=== PATIENT | male | born 1940 | race Caucasian/White ===

== ENCOUNTER → 2017-07-02 | Outpatient (CLI) | payer MEDICARE ==
--- NOTE | 2017-07-02 14:32 | CT ---
EXAMINATION TYPE: CT chest wo con DATE OF EXAM: 07/02/2017 COMPARISON: NONE HISTORY: Cough CT DLP: 556.[address] of the chest was performed with lung and mediastinal window settings submitted. The la ck of contrast limits evaluation of the vascular, mediastinal and parenchymal structures including th e upper abdomen. LUNGS: The lungs are clear and free of infiltrate. No atelectasis. No pulmonary nodule or mass is de tected. Small right-sided pleural effusion. Scattered calcified pleural plaques compatible with asbes tos related pleural disease. No CT evidence of interstitial lung disease. MEDIASTINUM/GABY: Thoracic aorta is of normal caliber with limited evaluation given lack of contrast . The heart is enlarged. Coronary artery calcifications identified. No evidence for mediastinal mas s. No lymph nodes greater than 1cm. UPPER ABDOMEN: No significant abnormality is seen. OTHER: No significant other abnormality. IMPRESSION: 1. Small right-sided pleural effusion. 2. Asbestos-related pleural disease.
== END | disposition home or self-care (01) ==
LOC: RADCTMAIN 13:23
PROVIDERS: ATTEND Family Medicine
DX: J90 Pleural effusion, not elsewhere classified (principal); J92.0 Pleural plaque with presence of asbestos
CPT/HCPCS: 71250

== ENCOUNTER → 2019-06-23 | Outpatient (CLI) | payer MEDICARE ==
[~2019-06-23] MED LIST: REGADENOSON 0.4 MG/5 ML SYRINGE IV ONE
--- NOTE | 2019-06-23 16:43 | NM ---
"EXAMINATION TYPE: NM stress lexiscan cardiolite DATE OF EXAM: 06/23/2019 COMPARISON: NONE HISTORY: Abnormal EKG, R 94.31 TECHNIQUE: After the intravenous administration of 9.66 mCi Tc 99m Sestamibi - Cardiolite resting SP ECT images acquired 45 minutes post injection. The patient received 0.4mg Lexiscan, 25.8 mCi Tc 99m Sestamibi - Stress images obtained [address] injection FINDINGS: There is diminished radiotracer accumulation along the anterior wall at rest images. This is predomin antly in the mid anterior wall extending towards the cardiac base. Large defects are present on stress images including the entire anterior wall, the entire lateral wal l to the cardiac apex, and diminished radiotracer within the inferior wall with increasing diminished radiotracer from the cardiac base to the cardiac apex. These areas are large stress-induced ischemic changes. This correlates with the polar maps. Ejection fraction is calculated at 2 which is very low. IMPRESSION: 1. Large stress-induced ischemic changes along the anterior wall, lateral wall and to a lesser degree present through the posterior wall left lateral ventricle. 2. Prior infarct along the anterior wall from the cardiac base to the midportion. 3. Global hypokinesia with a very low ejection fraction of 21%. A [place] level critical message alert has been initiated for Nader Beltre MD via the [employer] 36 0 | Critical Results System on 06/23/2019 4:37 PM. This message alert has been sent to Nader Beltre MD via the preferences provided by the clinician for the receipt of Radiology Critical Findings. [facility] ID [id number]."
--- NOTE | 2019-06-24 16:03 | EST ---
EXERCISE STRESS DATE OF STUDY: 06/23/2019 AGE: 78 SEX: Male HT: 71" WT: 200# PROTOCOL: Lexiscan Cardiolite STAGE: DURATION OF EXERCISE: HEART RATE REST: 63 BLOOD PRESSURE REST: 145/87 MAXIMUM HEART RATE ACHIEVED: 98 MAXIMUM BLOOD PRESSURE: 157/82 85% MPHR: 122 100% MPHR: 144 METS: INDICATIONS: Abnormal EKG CLINICAL INFORMATION: A Lexiscan nuclear study was performed. Resting EKG shows normal sinus rhythm with ST- T changes suggestive of left ventricular hypertrophy and strain pattern. No significant change in the ST-segment from baseline was noted during Lexiscan injection. The results of the nuclear study will follow. MMODL / IJN: [id number] /
== END | disposition home or self-care (01) ==
LOC: RADNMMAIN 07:48
PROVIDERS: ATTEND Family Medicine
DX: I21.09 ST elevation (STEMI) myocardial infarction involving other coronary artery of anterior wall (principal); I25.89 Other forms of chronic ischemic heart disease
CPT/HCPCS: 93017; 78452; A9500; J2785

== ENCOUNTER 2019-07-06 15:30 | Inpatient (IN) | payer MEDICARE ==
[2019-07-06 19:30] VITALS: RESP 18
[2019-07-06] MEDS ORDERED: LISINOPRIL 10 MG TAB PO STA (20:24)
[2019-07-06] MEDS ORDERED: SODIUM CHLORIDE 0.9% 1,000 ML in EMPTY BAG 1 BAG IV ONE (20:30)
[2019-07-06] MEDS ORDERED: NITROGLYCERIN SL TABS 0.4 MG TAB SUBLINGUAL PRN (20:30)
[2019-07-06] MEDS ORDERED: ATORVASTATIN 40 MG TAB PO SCH (21:00)
[2019-07-06] MEDS: METOPROLOL TARTRATE 25 MG TAB PO SCH (21:19)
[2019-07-06] MEDS: NITROGLYCERIN OINT 1 INCH/GM PACKET TOPICAL SCH (21:20)
[2019-07-06 21:38] LABS: Basophils % (A) 0 %; Eosinophils # (A) 0.2 k/uL (0-0.7); Eosinophils % (A) 3 %; HCT 45.3 % (39.0-53.0); HGB 14.7 gm/dL (13.0-17.5); Lymphocytes # (A) 1.4 k/uL (1.0-4.8); Lymphocytes % (A) 18 %; MCH 27.5 pg (25.0-35.0); MCHC 32.4 g/dL (31.0-37.0); Mean Platelet Volume 6.6; Monocytes # (A) 0.5 k/uL (0-1.0); Monocytes % (A) 7 %; Neutrophils # (A) 5.1 k/uL (1.3-7.7); Neutrophils % (A) 69 %; Platelet Count 168 k/uL (150-450); RBC 5.33 m/uL (4.30-5.90); RDW 13.3 % (11.5-15.5); WBC 7.4 k/uL (3.8-10.6)
[2019-07-06 21:43] LABS: Potassium 4.3 mmol/L (3.5-5.1)
[2019-07-07] MEDS ORDERED: SODIUM CHLORIDE 0.9% 1,000 ML IV SCH ×2 (04:30→16:15)
[2019-07-07] MEDS: NITROGLYCERIN OINT 1 INCH/GM PACKET TOPICAL SCH ×2 (06:50→11:59)
[2019-07-07] MEDS: LISINOPRIL 5 MG TAB PO SCH (08:08)
[2019-07-07] MEDS: METOPROLOL TARTRATE 25 MG TAB PO SCH ×2 (08:08→19:58)
[2019-07-07] MEDS ORDERED: ASPIRIN 81 MG PO SCH (09:00)
[2019-07-07] MEDS ORDERED: SODIUM CHLORIDE 0.9% 1,000 ML IV ONE (14:25)
[2019-07-07] MEDS ORDERED: fentaNYL (PF) 50 MCG/ML 2 ML AMP IV ONE (14:36)
[2019-07-07] MEDS ORDERED: MIDAZOLAM 2 MG/2 ML VIAL IVP ONE (14:37)
[2019-07-07] MEDS ORDERED: LIDOCAINE 1% INJ 10MG/ML (20 ML MDV) SQ ONE (14:40)
[2019-07-07] MEDS ORDERED: NITROGLYCERIN OINT 1 INCH/GM PACKET TOPICAL ONE (14:42)
[2019-07-07] MEDS ORDERED: hydrALAZINE HCL 20 MG/ML 1 ML VIAL IV ONE (15:14)
[2019-07-07] MEDS ORDERED: IOPAMIDOL-370 125ML BTL INJ ONE (15:30)
[2019-07-07] MEDS ORDERED: BIVALIRUDIN 250 MG in SODIUM CHLORIDE 0.9% 50 ML IV ONE (15:38)
[2019-07-07] MEDS ORDERED: BIVALIRUDIN BOLUS 250 MG/50 ML IV ONE (15:38)
[2019-07-07] MEDS ORDERED: CLOPIDOGREL 75 MG TAB PO ONE (15:40)
[2019-07-07] MEDS ORDERED: NITROGLYCERIN 1000MCG/10ML SYRINGE INTRACORON ONE (15:57)
[2019-07-07] MEDS ORDERED: IOPAMIDOL-370 100ML BTL INJ ONE (16:03)
[2019-07-07] MEDS ORDERED: RX INFO: IV CONTRAST WAS GIVEN 1 EACH MISC MISCELLANE PRN (16:15)
[2019-07-07] MEDS ORDERED: ZOLPIDEM 5 MG TAB PO PRN (16:15)
[2019-07-07] MEDS ORDERED: MAG HYDROX/AL HYDROX/SIMETH 30 ML CUP PO PRN (16:15)
[2019-07-07] MEDS ORDERED: NITROGLYCERIN SL TABS 0.4 MG TAB SUBLINGUAL PRN (16:15)
[2019-07-07] MEDS ORDERED: ATROPINE SULFATE 0.1 MG/ML 10ML SYRINGE IV PRN (16:15)
[2019-07-07] MEDS: ISOSORBIDE MONONITRATE ER 30 MG TAB.ER.24H PO SCH (17:30)
--- NOTE | 2019-07-07 19:23 | LTR ---
DATE OF SERVICE: 07/07/2019 Dear Nader: I performed cardiac catheterization on Abisai Garcia. A detailed catheterization noted is enclosed for your records. In brief, he has [place] 3 vessel coronary artery disease with patent VIDES to LAD and venous graft to PDA. Venous grafts to ramus intermedius and OM are occluded. The patient will undergo angioplasty of [place] circumflex coronary artery and if it does not improve his symptoms, the patient will be brought back and angioplasty of the high OM branch will be attempted. Thank you for giving us the privilege to participate in this pleasant gentleman. Sincerely, SANA / IJN: [id number] /
--- NOTE | 2019-07-07 19:23 | CC ---
CARDIAC CATHETERIZATION REPORT INDICATION: Unstable angina with abnormal stress test. PROCEDURE NOTE: Note after obtaining informed consent, left heart catheterization and coronary angiogram were performed via the right femoral artery. The patient has very tortuous iliac vessels. I had to use a long sheath to perform the cardiac catheterization. FINDINGS: HEMODYNAMICS: The left ventricular end-diastolic pressure is 22 mm. There is no significant gradient across the aortic valve. LEFT VENTRICULOGRAM: Left ventriculogram is not performed. ANGIOGRAPHIC DATA: LEFT MAIN CORONARY ARTERY: Left main coronary artery is a normal-sized vessel and is free of stenosis. Divides into left anterior descending coronary artery and circumflex coronary artery and ramus intermedius. LEFT ANTERIOR DESCENDING CORONARY ARTERY: The LAD appears totally occluded in its proximal part. CIRCUMFLEX CORONARY ARTERY: The circumflex coronary artery shows a 95% focal stenosis distally. RAMUS INTERMEDIUS: The ramus intermedius also has an an 80% stenosis RIGHT CORONARY ARTERY: Right coronary artery could not be engaged. SELECTIVE INJECTION OF THE BYPASS GRAFTS: VIDES to LAD appears patent. Proximal and distal anastomotic sites are free of disease. Stebbins LAD is a very small caliber vessel. Venous graft to ramus intermedius is occluded. Venous graft to the OM is occluded. Venous graft to the PDA appears patent and free of significant disease. CONCLUSIONS: 1. [place] 3 vessel coronary artery disease with patent VIDES to LAD, venous graft to PDA. 2. Occluded venous grafts to ramus intermedius and OM. PLAN: Patient will undergo angioplasty of the [place] circumflex coronary artery. If this does not improve his symptoms, we will consider angioplasty of the high OM branch. The patient has renal insufficiency and will be hydrated after surgery. We engaged the VIDES using a diana catheter and the venous graft to the PDA was engaged using a diana catheter. A [place] catheter engaged the venous grafts to ramus intermedius and OM. The patient received moderate conscious sedation and total sedation time was 26 minutes. MMODL / IJN: [id number] /
--- NOTE | 2019-07-07 20:59 | PTCA ---
PERCUTANEOUSTRANS CORORONARY ANGIOGRAPHY Mr. Garcia is a 79-year-old male with a known history of coronary artery disease status post coronary artery bypass grafting who presented with symptoms of exertional chest discomfort and abnormal myocardial perfusion imaging, underwent cardiac catheterization by Dr. Yates and was found to have critical stenosis involving the distal left circumflex. In view of that, recommendation was made regarding angioplasty and stenting. The procedure as well as risks and complications were discussed with the patient who is in full understanding and agreement. DESCRIPTION OF PROCEDURE: 6-[place] LBU 3.75 guiding catheter introduced into the system. After cannulating the left main, a 0.014 balanced medium weight J-wire was advanced across the lesion, positioned distally. Following that, a 2.5 x 12 mm Trek balloon was advanced and two inflations were done at 10 atmospheres. Following that, the balloon was removed and a 2.5 x 18 mm Xience Celeste stent was deployed. It was dilated at 16 atmospheres. After the last inflation, after appropriate wait, the balloon and the guidewire were withdrawn back in the guiding catheter. Images were obtained and repeated. Those images reveal stable successful stenting. At that point, the guiding catheter, the balloon and the guidewire were removed. The sheath was removed. Hemostasis was obtained with deployment of an Angio-Seal. There was no immediate complication. Patient is returned to his room in stable condition. Of note, the patient received Angiomax per protocol as well as oral loading dose of clopidogrel. He had chest discomfort with the inflations that resolved at the end procedure and no significant EKG changes. RESULTS: Successful stenting of the distal left circumflex with reduction of stenosis from 95% to 0%. RECOMMENDATION: Patient will be continued on aspirin, Plavix beta monica, GALLO inhibitor, statin. Close followup of his symptoms will be done. If he has further symptoms, then attempt to recanalize the totally occluded first obtuse marginal branch will be done. Those findings and recommendations were discussed with the patient who is in full understanding and agreement. MMODL / IJN: [id number] /
[2019-07-07] MEDS ORDERED: ATORVASTATIN 80 MG TAB PO SCH (21:00)
--- NOTE | 2019-07-08 07:18 | HP ---
HISTORY AND PHYSICAL CHIEF COMPLAINT: This 79-year-old white male with exertional and at rest angina with abnormal stress test and chest pain with any exertion or stress. He was admitted to the hospital. 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 He had angioplasty of the right circumflex artery today. He is currently chest pain free with no lightheaded, dizziness, syncope. MEDICATIONS: 1. Lipitor 80 q.h.s. 2. Plavix 75 mg daily. 3. Imdur 30 mg daily. 4. Zestril 5 mg daily. 5. Lopressor 25 b.i.d. 6. Nitro sublingual p.r.n. ejection fraction around 21% REVIEW OF SYSTEMS: Fourteen-point review of systems negative except for as mentioned above. SURGERY: He had a CABG surgery 10 years ago. No stress test in years. PHYSICAL EXAMINATION: Respiratory 18 to 20, pulse 60 to 64, blood pressure 103 to 112 over 50 to 60s, O2 95% to 98% on room air, temp 98. CARDIOVASCULAR: S1, S2. LUNGS: Clear. GI: Soft. HEMATOLOGY: Negative Homans. PSYCH: Fair mood and affect. NEUROLOGIC: Alert and oriented x3. ASSESSMENT: Exertional and unstable angina with coronary artery disease, abnormal stress test, prior CABG. The patient is stable from medical standpoint after angioplasty. He will be discharged home in the morning for possible discharge and an outpatient stress test in 3 months. MMODL / IJN: [id number] /
[2019-07-08] MEDS ORDERED: CLOPIDOGREL 75 MG TAB ONE (07:53)
[2019-07-08 08:04] LABS: Calcium 9.3 mg/dL (8.4-10.2); Potassium 4.5 mmol/L (3.5-5.1)
[2019-07-08] MEDS: METOPROLOL TARTRATE 25 MG TAB PO SCH (08:04)
[2019-07-08] MEDS: ISOSORBIDE MONONITRATE ER 30 MG TAB.ER.24H PO SCH (08:05)
[2019-07-08] MEDS: LISINOPRIL 5 MG TAB PO SCH (08:06)
[2019-07-08] MEDS ORDERED: ASPIRIN 81 MG PO SCH (09:00)
[2019-07-08 10:27] VITALS: BMI 28.5
--- NOTE | 2019-07-08 11:00 | ECHOF ---
Referral Reason:cp MEASUREMENTS -------- HEIGHT: 180.3 cm WEIGHT: 90.7 kg BP: RVIDd: 3.2 cm (< 3.3) IVSd: 0.8 cm (0.6 - 1.1) LVIDd: 4.0 cm (3.9 - 5.3) LVPWd: 1.0 cm (0.6 - 1.1) IVSs: 1.5 cm LVIDs: 2.5 cm LVPWs: 1.3 cm LAESV Index (A-L): 37.10 ml/m Ao Diam: 2.4 cm (2.0 - 3.7) AV Cusp: 1.4 cm (1.5 - 2.6) LA Diam: 3.6 cm (2.7 - 3.8) MV EXCURSION: 13.883 mm (> 18.000) MV EF SLOPE: 24 mm/s (70 - 150) EPSS: 0.8 cm MV E Jose G: 0.81 m/s MV DecT: 202 ms MV A Jose G: 0.30 m/s MV E/A Ratio: 2.73 AV maxP.42 mmHg AV meanP.69 mmHg AR PHT: 621 ms RAP: 5.00 mmHg RVSP: 39.99 mmHg TAPSE: 13.67 mm FINDINGS -------- Sinus rhythm. This was a technically difficult study with suboptimal views. The left ventricular size is normal. Left ventricular wall thickness is normal. There is severe g lobal hypokinesis of LV . Overall left ventricular systolic function is severely impaired with, an EF between 20 - 25 %. Increased LAP Grade 3 Diastolic Dysfunction. The right ventricle is normal in size. The right ventricular systolic function is severely impaired . LA is moderately dilated 34-39 ml/m2 The right atrial size is normal. Lumason used Aortic valve is trileaflet and is moderately thickened. There is moderate aortic valve sclerosis. There is mild aortic regurgitation. Peak/mean gradient across the Aortic Valve is 15.42mmHg / 7.69 mmHg. The mitral valve is normal. The mitral valve leaflets are mildly thickened. Mild mitral regurgita tion is present. The tricuspid valve appears structurally normal. Mild tricuspid regurgitation present. There is m ild pulmonary hypertension. The right ventricular systolic pressure, as measured by Doppler, is 39. 99mmHg. There is no pulmonic regurgitation present. The aortic root size is normal. IVC Not well visulized. There is no pericardial effusion. CONCLUSIONS -------- 1. Sinus rhythm. 2. This was a technically difficult study with suboptimal views. 3. The left ventricular size is normal. 4. Left ventricular wall thickness is normal. 5. There is severe global hypokinesis of LV . 6. Overall left ventricular systolic function is severely impaired with, an EF between 20 - 25 %. 7. Increased LAP Grade 3 Diastolic Dysfunction. 8. The right ventricle is normal in size. 9. The right ventricular systolic function is severely impaired. 10. LA is moderately dilated 34-39 ml/m2 11. The right atrial size is normal. 12. Lumason used 13. Aortic valve is trileaflet and is moderately thickened. 14. There is moderate aortic valve sclerosis. 15. There is mild aortic regurgitation. 16. Peak/mean gradient across the Aortic Valve is 15.42mmHg / 7.69mmHg. 17. The mitral valve is normal. 18. The mitral valve leaflets are mildly thickened. 19. Mild mitral regurgitation is present. 20. The tricuspid valve appears structurally normal. 21. Mild tricuspid regurgitation present. 22. There is mild pulmonary hypertension. 23. The right ventricular systolic pressure, as measured by Doppler, is 39.99mmHg. 24. There is no pulmonic regurgitation present. 25. The aortic root size is normal. 26. IVC Not well visulized. 27. There is no pericardial effusion. OPERATIONS RESEARCH MANAGER: Inez Bhatt RDCS
[2019-07-08 12:29] VITALS: TEMP 98
[2019-07-08 12:31] VITALS: BP 134/66; PULSE 54
[2019-07-08 12:54] LABS: HCT 44.4 % (39.0-53.0); HGB 14.3 gm/dL (13.0-17.5); MCH 27.3 pg (25.0-35.0); MCHC 32.3 g/dL (31.0-37.0); MCV 84.5 fL (80.0-100.0); Mean Platelet Volume 6.8; Platelet Count 173 k/uL (150-450); RBC 5.25 m/uL (4.30-5.90); RDW 13.5 % (11.5-15.5); WBC 7.6 k/uL (3.8-10.6)
[2019-07-08 13:03] LABS: Calcium 9.6 mg/dL (8.4-10.2); Potassium 4.3 mmol/L (3.5-5.1)
--- NOTE | 2019-07-08 14:10 | P.CRDCN ---
History of Present Illness History of present illness: This is Maribell Burns PA-C dictating a consult on this patient The patient was interviewed and examined by me as well as by Dr. Lyle Case discussed with Dr. Lyle and he agrees with the plan of care IMPRESSION / ASSESSMENT: CAD status post CABG and recent stenting of the distal left circumflex Ischemic cardiomyopathy Hypertension Dyslipidemia PLAN: Continue maximal medical management with aspirin and statins and beta blockers Continue dual antiplatelet therapy Patient is clear for discharge from a cardiac standpoint with close outpatient follow-up HPI Patient is a 79-year-old male with a past medical history of CAD status post CABG who presented for cardiac catheterization for evaluation of an abnormal nuclear stress test. He was found to have critical stenosis of the distal left circumflex and underwent successful stenting of the distal left circumflex. Echocardiogram today shows severely impaired systolic function, EF 20-25%. Patient seen and examined sitting up at the side of the bed. Denies any bleeding issues. Has been getting up and walking around. Tolerated his breakfast. Denies any complaints of chest pain, shortness of breath, dizziness lightheadedness or palpitations. ROS: No fevers, chills or rigors, no cough, phlegm or expectoration, no nausea, vomiting or diarrhea, no hematuria, dysuria, no musculoskeletal complaints, no strokes or seizures, no skin lesions. EXAMINATION: Temperature 98.0F, pulse 61, respirations 18, blood pressure 133/64, oxygen saturation 98% on room air Patient seen and examined sitting up at the side of the bed, in no acute distress Lungs clear to auscultation bilaterally, no wheezing rhonchi or crackles Heart is regular, normal S1 and S2, no murmurs gallops or rubs No elevated JVD No lower extremity edema Right groin minimally tender to palpation, no bleeding or hematomas palpated REVIEW OF LABS, ECG & MEDICAL DATA WBC 7.6, hemoglobin 14.3, platelets 173, potassium 4.3, BUN 16, creatinine 1.11 LDL 138 Echocardiogram shows severely impaired systolic function, EF 20-25%, severe global hypokinesis Past Medical History Past Medical History: Coronary Artery Disease (CAD), Chest Pain / Angina, Hyperlipidemia, Hypertension, Prostate Disorder Additional Past Medical History / Comment(s): gout, History of Any Multi-Drug Resistant Organisms: None Reported Past Surgical History: Coronary Bypass/CABG, Heart Catheterization Past Anesthesia/Blood Transfusion Reactions: No Reported Reaction Past Psychological History: No Psychological Hx Reported Smoking Status: Former smoker Past Alcohol Use History: None Reported Past Drug Use History: None Reported - Past Family History Father Family Medical History: CVA/TIA Mother History Unknown: Yes Medications and Allergies Home Medications Medication Instructions Recorded Confirmed Type Aspirin EC [Ecotrin Low Dose] 81 mg PO DAILY #30 tablet. 03/02/14 07/06/19 Rx Isosorbide Dinitrate 30 mg PO DAILY 07/06/19 07/06/19 History Lisinopril [Zestril] 5 mg PO DAILY 07/06/19 07/06/19 History Metoprolol Tartrate 25 mg PO BID 07/06/19 07/06/19 History Atorvastatin [Lipitor] 80 mg PO HS #30 tab 07/08/19 Rx Clopidogrel [Plavix] 75 mg PO DAILY #30 tab 07/08/19 Rx Nitroglycerin Sl Tabs [Nitrostat] 0.4 mg SUBLINGUAL Q5M PRN #100 tab 07/08/19 Rx Allergies Allergy/AdvReac Type Severity Reaction Status Date / Time No Known Allergies Allergy Verified 07/06/19 19:40 Physical Exam Vitals: Vital Signs Temp Pulse Resp BP Pulse Ox 07/08/19 12:00 54 L 18 134/66 97 07/08/19 08:00 98.0 F 61 18 133/64 98 07/08/19 04:00 75 18 07/07/19 22:59 98.2 F 75 18 149/71 97 07/07/19 22:34 60 18 07/07/19 20:00 98.0 F 60 18 109/65 95 07/07/19 19:00 64 18 103/70 98 07/07/19 18:00 62 18 112/58 97 07/07/19 17:30 73 18 169/82 96 07/07/19 17:00 62 17 137/78 96 07/07/19 16:45 68 17 145/73 96 07/07/19 16:30 61 18 148/79 97 07/07/19 16:15 72 18 149/79 96 07/07/19 16:00 18 151/85 98 Intake and Output 07/07/19 07/08/19 07/08/19 22:59 06:59 14:59 Intake Total 372 350 Output Total 225 Balance 147 350 Intake: IV 32 Intake, IV Titration 100 100 Amount Sodium Chloride 0.9% 1, 100 100 000 ml @ 100 mls/hr IV . Q10H [facility] Rx#:[id number] Oral 240 250 Output: Urine 225 Other: Voiding Method Urinal Urinal # Voids 1 1 Weight 90.2 kg 90.2 kg Results 07/08/19 12:29 07/08/19 12:29 CBC 07/08/19 Range/Units 12:29 WBC 7.6 (3.8-10.6) k/uL RBC 5.25 (4.30-5.90) m/uL Hgb 14.3 (13.0-17.5) gm/dL Hct 44.4 (39.0-53.0) % Plt Count 173 (150-450) k/uL Comprehensive Metabolic Panel 07/08/19 07/08/19 Range/Units 05:33 12:29 Sodium 138 139 (137-145) mmol/L Potassium 4.5 4.3 (3.5-5.1) mmol/L Chloride 103 105 (98-107) mmol/L Carbon Dioxide 30 26 (22-30) mmol/L BUN 16 16 (9-20) mg/dL Creatinine 1.16 1.11 (0.66-1.25) mg/dL Glucose 96 116 H (74-99) mg/dL Calcium 9.3 9.6 (8.4-10.2) mg/dL Current Medications Generic Name Dose Route Start Last Admin Trade Name Freq PRN Reason Stop Dose Admin Al Hydroxide/Mg Hydroxide 30 ml 07/07/19 16:15 Maalox PO Q4HR PRN Heartburn Aspirin 81 mg 07/08/19 09:00 07/08/19 08:05 Aspirin PO 81 mg DAILY RELL Administration Atorvastatin Calcium 80 mg 07/07/19 21:00 07/07/19 19:58 Lipitor PO 80 mg HS RELL Administration Atropine Sulfate 0.5 mg 07/07/19 16:15 Atropine IV ONCE PRN Symptomatic Bradycardia Clopidogrel Bisulfate 75 mg 07/08/19 16:16 Plavix PO DAILY [facility] Isosorbide Mononitrate 30 mg 07/07/19 16:30 07/08/19 08:05 Imdur PO 30 mg DAILY RELL Administration Lisinopril 5 mg 07/08/19 21:00 Zestril PO BID RELL Metoprolol Tartrate 25 mg 07/06/19 21:00 07/08/19 08:04 Lopressor PO 25 mg BID RELL Administration Miscellaneous Information 1 each 07/07/19 16:15 Rx Info: Iv Contrast Was Given MISCELLANE 07/09/19 16:15 DAILY PRN Per Protocol Nitroglycerin 0.4 mg 07/07/19 16:15 Nitrostat SUBLINGUAL Q5M PRN Chest Pain Zolpidem Tartrate 5 mg 07/07/19 16:15 Ambien PO HS PRN Insomnia Intake and Output 07/07/19 07/08/19 07/08/19 22:59 06:59 14:59 Intake Total 372 350 Output Total 225 Balance 147 350 Intake: IV 32 Intake, IV Titration 100 100 Amount Sodium Chloride 0.9% 1, 100 100 000 ml @ 100 mls/hr IV . Q10H RELL Rx#:[id number] Oral 240 250 Output: Urine 225 Other: Voiding Method Urinal Urinal # Voids 1 1 Weight 90.2 kg 90.2 kg Patient Weight 07/09/19 06:59 Weight 90.2 kg 07/08/19 12:29 07/08/19 12:29
[2019-07-08] MEDS ORDERED: CLOPIDOGREL 75 MG TAB PO SCH (16:16)
--- NOTE | 2019-07-08 17:39 | P.DS ---
Providers Date of admission: 07/08/19 09:57 Expected date of discharge: 07/08/19 Attending physician: Nader Beltre Consults: 07/06/19 20:22 Consult Physician Routine Consulting Provider: Joslyn Bautista Consult Reason/Comments: POSITIVE STRESS Do you want consulting provider notified?: Already Contacted 07/07/19 16:15 Consult Physician Routine Consulting Provider: Joslyn Bautista Consult Reason/Comments: Post Interventional patient Do you want consulting provider notified?: Already Contacted Primary care physician: Stated None Hospital Course: Final Diagnoses: -Chest pain, unstable angina, abnormal stress test status post cardiac catheterization with angioplasty, stenting of the right circumflex -Ischemic cardiomyopathy, EF 20-25% -Moderate aortic sclerosis -Acute renal failure secondary to the above, improving -CAD, status post CABG -Hypertension -Hyperlipidemia Hospital course this is a 79-year-old gentleman with history of CAD, CABG, abno rmal stress test admitted with chest pain. Evaluated by cardiology and underwent cardiac catheterization; Venous grafts to the ramus intermedius and OM occluded, with potential angioplasty of the high OM branch at a later date if symptoms fail to improve . Status post angioplasty and stenting of the left circumflex EF 20-25%. Tolerated procedure well. Denies chest pain, palpitations or shortness of breath. Denies lightheadedness dizziness or focal deficits. Significant clinical improvement. Cleared by cardiology for discharge. Patient is being discharged home in a stable condition with guarded prognosis. PHYSICAL EXAM: GENERAL: Alert and oriented 3, no acute distress CARDIOVASCULAR: S1, S2 regular.. No murmur RESPIRATION: Breath sounds diminished in the bases. No rhonchi or crackles. No wheezing. ABDOMEN: Soft, nondistended, nontender . No guarding. no masses palpable. Positive Bowel sounds heard. NERVOUS SYSTEM: No focal deficits. The impression and plan of care has been dictated as directed. : I performed a history and examination of this patient, discussed the same with the dictator. I agree with the dictator's note ,documented as a scribe. Any additional findings or plans will be noted. Patient Condition at Discharge: Stable Plan - Discharge Summary Discharge Rx Participant: No New Discharge Prescriptions: New Atorvastatin [Lipitor] 80 mg PO HS #30 tab Nitroglycerin Sl Tabs [Nitrostat] 0.4 mg SUBLINGUAL Q5M PRN #100 tab PRN Reason: Chest Pain Clopidogrel [Plavix] 75 mg PO DAILY #30 tab Continue Aspirin EC [Ecotrin Low Dose] 81 mg PO DAILY #30 tablet. Metoprolol Tartrate 25 mg PO BID Lisinopril [Zestril] 5 mg PO DAILY Isosorbide Dinitrate 30 mg PO DAILY Discharge Medication List Aspirin EC [Ecotrin Low Dose] 81 mg PO DAILY #30 tablet. 03/02/14 [Rx] Isosorbide Dinitrate 30 mg PO DAILY 07/06/19 [History] Lisinopril [Zestril] 5 mg PO DAILY 07/06/19 [History] Metoprolol Tartrate 25 mg PO BID 07/06/19 [History] Atorvastatin [Lipitor] 80 mg PO HS #30 tab 07/08/19 [Rx] Clopidogrel [Plavix] 75 mg PO DAILY #30 tab 07/08/19 [Rx] Nitroglycerin Sl Tabs [Nitrostat] 0.4 mg SUBLINGUAL Q5M PRN #100 tab 07/08/19 [Rx] Follow up Appointment(s)/Referral(s): PCP, [Other] - 1 Week (Please find and schedule an appoinmtent with a primary care physician ) Douglas Yates MD [STAFF PHYSICIAN] - 07/14/19 9:45 am (Saturday) Ambulatory/Diagnostic Orders: Complete Blood Count w/diff [LAB.AMB] Time Frame: 3 Days, Location: None Selected Patient Instructions/Handouts: *Surgery [facility] - After Heart Catheterization - Research Animal Facility Supervisor Instructions, Left Heart Catheterization (DC) Discharge Disposition: HOME SELF-CARE
[2019-07-08] MEDS ORDERED: LISINOPRIL 5 MG TAB PO SCH (21:00)
== END 2019-07-08 14:10 | disposition home or self-care (01) | DRG 247 ==
LOC: 1SOBS 18:42 → 3SCARD 07-07 16:20 → OBSVTOIN 07-08 09:57
PROVIDERS: ADMIT Family Medicine; ATTEND Family Medicine
PROC: B2161ZZ Fluoroscopy of Right and Left Heart using Low Osmolar Contrast (ICD-10-PCS; principal; 2019-07-08)
PROC: 4A023N7 Measurement of Cardiac Sampling and Pressure, Left Heart, Percutaneous Approach (ICD-10-PCS; principal; 2019-07-08)
PROC: 027034Z Dilation of Coronary Artery, One Artery with Drug-eluting Intraluminal Device, Percutaneous Approach (ICD-10-PCS; principal; 2019-07-08)
DX: I25.110 Atherosclerotic heart disease of native coronary artery with unstable angina pectoris (principal); N17.9 Acute kidney failure, unspecified; E78.5 Hyperlipidemia, unspecified; I10 Essential (primary) hypertension; I25.5 Ischemic cardiomyopathy; Z79.02 Long term (current) use of antithrombotics/antiplatelets; Z79.82 Long term (current) use of aspirin; Z79.899 Other long term (current) drug therapy; Z87.891 Personal history of nicotine dependence; Z95.1 Presence of aortocoronary bypass graft
CPT/HCPCS: 80048; 80061; 85025; 85027; 93306; 93459; C1874

== ENCOUNTER → 2023-11-15 | Outpatient (CLI) | payer MEDICARE ==
[2023-11-15 15:09] LABS: HGB 14.4 g/dL (13.0-17.0); MCH 26.2 pg (27.0-32.0); MCHC 31.3 g/dL (32.0-37.0); MCV 83.8 FL (80.0-97.0); Mean Platelet Volume 11.2 FL (9.5-12.2); NRBC Per 100 WBC 0 X 10*3/uL (0.00-0.01); Platelet Count 156 X 10*3/uL (140-440); RBC 5.49 X 10*6/uL (4.40-5.60); RDW 14.1 % (11.5-14.5); WBC 6.24 X 10*3/uL (4.50-10.00)
[2023-11-15 15:27] LABS: ALT 27 U/L (10-49); AST 22 U/L (14-35); Blood Urea Nitrogen 16.5 mg/dL (9.0-27.0); Carbon Dioxide 23.8 mmol/L (21.6-31.8); Chloride 105 mmol/L (96-109); Chol/HDL Ratio 3.51 Ratio; LDL Cholesterol,Calculated 69.3 mg/dL (0.0-131.0); Potassium 4.6 mmol/L (3.5-5.5); Sodium 141 mmol/L (135-145); VLDL Calculation 19.44 mg/dL (5.00-40.00)
== END | disposition home or self-care (01) ==
LOC: LABWHC1 11:02
PROVIDERS: ATTEND Internal Medicine Cardiovascular Disease
DX: E78.2 Mixed hyperlipidemia (principal); I48.19 Other persistent atrial fibrillation
CPT/HCPCS: 36415; 80051; 80061; 82565; 84443; 84450; 84460; 84520; 85027

== ENCOUNTER → 2024-03-09 | Outpatient (CLI) | payer MEDICARE ==
[2024-03-09 13:51] LABS: African American GFR (CKD) 51 (>60 ml/min/1.73 sqM); Blood Urea Nitrogen 18 mg/dL (9-20); Non-African American GFR(CKD) 44 (>60 ml/min/1.73 sqM)
--- NOTE | 2024-03-09 14:32 | CT ---
EXAMINATION TYPE: CT chest w con DATE OF EXAM: 03/09/2024 COMPARISON: 07/02/2017 HISTORY: CHF CT DLP: 602 mGycm Automated exposure control for dose reduction was used. CONTRAST: CT scan of the chest is performed with IV Contrast, patient injected with 100 mL of Isovue 300. FINDINGS: LUNGS: The lungs are grossly clear, there is no concerning parenchymal mass or nodule identified. Sma ll bilateral pleural effusions noted left greater than right. 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 The tracheobronchial tree is patent. MEDIASTINUM: There are no greater than 1 cm hilar or mediastinal lymph nodes. No pericardial effusi on is seen. Thoracic aorta is of normal caliber. There is evidence of cardiomegaly. UPPER ABDOMEN: No significant abnormality appreciated. OTHER: No additional significant abnormality is seen. IMPRESSION: Small bilateral pleural effusions noted left greater than right. 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 Cardiomegaly without overt congestive failure at this [place].
== END | disposition home or self-care (01) ==
LOC: RADCTMAIN 13:17
PROVIDERS: ATTEND Family Medicine
DX: I50.20 Unspecified systolic (congestive) heart failure (principal); J44.9 Chronic obstructive pulmonary disease, unspecified; J90 Pleural effusion, not elsewhere classified; J94.8 Other specified pleural conditions; J92.9 Pleural plaque without asbestos
CPT/HCPCS: 82565; 84520; 71260; 36415; Q9967